=== PATIENT | female | born 1975 | race Caucasian/White ===

== ENCOUNTER 2020-03-01 10:02 | Outpatient (REF) | payer OTHER, SELFPAY | END 2020-03-01 10:03 | disposition home or self-care (01) | LOC: HO.LAB 10:02 | PROVIDERS: Visit Provider Internal Medicine | DX: Z20.828 Contact with and (suspected) exposure to other viral communicable diseases (principal) | CPT/HCPCS: C9803; U0003 ==

== ENCOUNTER 2020-06-06 | Outpatient (REF) | payer OTHER, SELFPAY | END 2020-06-06 00:01 | disposition home or self-care (01) | LOC: HO.LNP | PROVIDERS: Visit Provider Hospitalist | DX: Z20.822 Contact with and (suspected) exposure to COVID-19 (principal) | CPT/HCPCS: U0003; U0005 ==

== ENCOUNTER 2020-06-06 | Outpatient (REF) | payer OTHER, SELFPAY | END 2020-06-06 00:01 | disposition home or self-care (01) | LOC: HO.WFDLNP | PROVIDERS: Visit Provider Hospitalist | DX: Z13.89 Encounter for screening for other disorder (principal) ==

== ENCOUNTER 2022-04-13 09:46 | Outpatient (REF) | payer OTHER, SELFPAY ==
[2022-04-13 14:59] LABS: Influenza A PCR NEGATIVE (Negative); Influenza B PCR NEGATIVE (Negative); Resp Syncy Virus RNA Qual PCR POSITIVE (Negative); SARS COV2 PCR INHOUSE NEGATIVE (Negative)
== END 2022-04-13 09:47 | disposition home or self-care (01) ==
LOC: HO.LAB 09:46
PROVIDERS: Visit Provider Family Medicine
DX: Z20.822 Contact with and (suspected) exposure to COVID-19 (principal)
CPT/HCPCS: 0241U